=== PATIENT | female | born 1990 | race Caucasian/White ===

== ENCOUNTER 2019-01-01 15:34 | Emergency (ER) | payer BC, OTHER ==
[~2019-01-01] VITALS: Ht 157.5 cm; Wt 65.8 kg
[2019-01-01] MEDS ORDERED: SERTRALINE HCL50 MG PO (15:44)
[2019-01-01] MEDS ORDERED: PRENATAL GUMMI1 EACH PO (15:45)
[2019-01-01 17:06] VITALS: BP 117/77
== END 2019-01-01 17:07 | disposition short-term general hospital (02) ==
LOC: ER 15:34
DX: O62.4 Hypertonic, incoordinate, and prolonged uterine contractions (principal); Z3A.35 35 weeks gestation of pregnancy